=== PATIENT | male | born 1940 | race Caucasian/White ===

== ENCOUNTER 2017-07-25 11:30 | Inpatient (IN) | payer MEDICARE, OTHER ==
[~2017-07-25] VITALS: Ht 175.3 cm; Wt 88.5 kg
--- NOTE | ~2017-07-25 | H ---
[address] [address] HISTORY AND PHYSICAL Name: AMINATA LOMBARDO Room: [address]#: [id number] Admission: 07/25/17 Attend Phys: Bunny Carrion MD, Discharge: 07/27/17 Date of : 38 Report #: [id number] THIS REPORT FOR: //name// Please refer to the History and Physical performed in the physician's office. By: [id number] Records Staff MALU /ALBERTO
[~2017-07-25 11:30] MED LIST: ASPIR 8181 M1 PO; CALCIUM 600 +1 EAC1 PO; COPPER GLUCONATE PO; CRESTOR10 MG PO; DHEA50 MG PO; FISH OIL 1,001000 M2 PO; METOPROLOL TART25 MG PO; NEXIUM40 MG PO; OSTEO BI-FLEX1 EAC1 PO; OSTEO BI-FLEX1 EAC3 PO; PLAVIX 75 MG TA75 M1 PO; PLAVIX 75 MG TA75 MG PO; TESTOSTERONE TOP; VITAMIN B 12 PO; VITAMIN B 6 PO; VITAMIN D32000 UNIT PO; ZINC50 M1 PO; [UNRECOGNIZED DRUG - OTHER]
[2017-07-25 16:30] VITALS: BP 112/59
--- NOTE | 2017-07-25 17:30 | NUR ---
PT DIRECT ADMIT TO UNIT. A & O X4. ABLE TO COMMUNICATE NEEDS TO STAFF. SR ON TELE MONITOR. NO C/O PAIN, NAUSEA, SOA OR DISTRESS AT THIS TIME. VS WNL. IV FLUIDS INFUSING PER ORDER. NEEDED ITEMS AND CALL LIGHT WITHIN REACH. AGREEABLE TO CARE PLAN. CONFIRMED THAT PREDNISONE ORDER IS ON EMAR FOR ADMIN THIS EVENING WELL METHYLPREDNISOLONE FOR PRE-PROCEDURE MED 07/26/17.
[2017-07-25 20:00] VITALS: BP 133/63
[2017-07-26] VITALS (12 sets, daily range): BP systolic 107–147; BP diastolic 55–81
[2017-07-26 05:18] LABS: HEMOGLOBIN 14.7 gm/dL (14.0-18.0); MCH 31.7 pg (26.0-34.0); MCV 90.5 fL (80.0-100.0); MPV 9.4 fl. (7.2-11.1); NUCLEATED RBCS 0 /100WBC; PLATELET COUNT* 106 thou/uL (150-400); RBC 4.64 mil/uL (4.50-6.00); RDW-CV 13.8 % (10.5-14.5); WBC 9.4 thou/uL (4.0-11.0)
[2017-07-26 05:33] LABS: APTT 24.5 Seconds (25.0-31.3); INR 1.1; PROTIME 10.7 Seconds (9.20-11.50)
--- NOTE | 2017-07-26 05:39 | NUR ---
ASSUMED CARE OF PATIENT AT 1900 THE PATIENT REMAINS SR ON THE MONITOR DENIES CX PAIN OR SOA O2 SAT MAINTAINED ON RA CONTINUES TO BE UP WITH STANDBY ASSIST OF 1 TO THE BATHROOM THE ROUTINE REGIMEN CONTINUES TO BE EFFECTIVE FOR SX MANAGEMENT REPORTED PLAN FOR TIME OF SURGERY AROUND 0930 PATIENT STATES UNDERSTANDING 18 G IS PLACED IN THE LAC 20 G PRESENT IN LFA DURING CHART CHECK NOTED VALIUM ORDERS NEEDED ENTERED PLACED IN SYSTEM TRANSCRIBED SAFETY INTERVENTIONS CONTINUE BED LOWERED WHEELS LOCKED CALL LIGHT IN REACH SIDE RAILS UP REPORT TO BE GIVEN TO ONCOMING RN
[2017-07-26 06:09] LABS: BUN 21 mg/dL (7-18); GLUCOSE 141 mg/dL (70-99)
[2017-07-26 06:28] LABS: ALBUMIN 3.4 g/dL (3.4-5.0); ALKALINE PHOSPHATASE 59 U/L (46-116); ANION GAP 9 mmol/L (7-16); CALCIUM 8.5 mg/dL (8.5-10.1); CHLORIDE 107 mmol/L (98-107); CHOLESTEROL 118 mg/dL (<200); CO2 26 mmol/L (21-32); CREATININE 1.4 mg/dL (0.6-1.3); HDL CHOLESTEROL 45 mg/dL (>40); LDL CHOLESTEROL 63 mg/dL (<100); POTASSIUM 4.3 mmol/L (3.5-5.1); SGOT 19 U/L (15-37); SGPT 37 U/L (30-65); SODIUM 142 mmol/L (136-145); TC:HDL 2.6 Ratio (Not establshd); TOTAL BILIRUBIN 0.4 mg/dL (<0.1-1.0); TOTAL PROTEIN 6.1 g/dL (6.4-8.2); TRIGLYCERIDE 52 mg/dL (<150); VLDL 10 mg/dL (<40)
[2017-07-26 06:30] LABS: SERUM ASSESSMENT CLEAR
[2017-07-26 07:32] LABS: ABSOLUTE LYMPHOCYTES 0.8 thou/uL (0.8-5.3); ABSOLUTE NEUTROPHILS 8.6 thou/uL (1.6-8.1); ANISOCYTOSIS 1+; PLATELET ESTIMATE DECREASED; POIKILOCYTOSIS 1+
--- NOTE | 2017-07-26 09:13 | NUR ---
PT TO MANAGER AUDIO.
--- NOTE | 2017-07-26 12:13 | CARD ---
[address] [address] CARDIAC CATH REPORT Name: AMINATA LOMBARDO Room: [address] IN [facility]#: [id number] Admission: 07/25/17 Attend Phys: Bunny Carrion MD, Discharge: Date of : 39 Report #: [id number] THIS REPORT FOR: //name// APPROVED REPORT Study performed: 07/26/2017 08:57:18 Patient Details Patient Status: In-Patient Room #: 209 The patient is a 77 year-old male Event Personnel Bunny Carrion Medical Apparatus Model Maker, Tia Cruz RN RN, Josey Smith RN Monitor, Shaina Wooten RTR Scrub Procedures Performed Art Access - R femoral artery* , Left Heart Catheterization, FFR, RUSSELL Single LAD PTCA with Stenting; left heart catheterization with selective coronary arteriography; fractional flow reserve measured pertinent to a moderately severe mid LAD lesion, RUSSELL Addl BR DIAG 1 PTCA with Stenting Indication Unstable angina Risk Factors Family History, Hypercholesterolemia, Hypertension Previous Procedures/Diagnoses Previous PCI Admission/Lab Medications/Medications given during procedure Aspirin, Aspirin PO 162 mg, Plavix PO 600 mg, Angiomax IV 13.5 ml Procedure Narrative The patient was brought electively to the Cardiac Catheterization Laboratory and was prepped and draped in a sterile manner. The right femoral was infiltrated with 1% Lidocaine subcutaneous anesthesia. A [place] 6 FR sheath was inserted into the right femoral artery. Coronary angiography was performed using coronary diagnostic catheters. The right coronary system was accessed and visualized with a Diagnostic JR4 catheter. The left coronary system was accessed and visualized with a Diagnostic JL4 catheter. The left ventricle was accessed and visualized with a Pig 6fr [place] [address] CARDIAC CATH REPORT Name: AMINATA LOMBARDO Room: [address]#: [id number] Admission: 07/25/17 Attend Phys: Bunny Carrion MD, Discharge: Date of : 39 Report #: [id number] ventricular/Aortic Valve gradient assessed . Pre-demployment femoral angiogram was performed . Closure device was deployed with a 6 Fr Angioseal STS. The patient tolerated the procedure well and there were no complications associated with the procedure. There was no hematoma. Intraoperative Conscious Sedation Sedation start time: 939 Case end Time: 1046 Fentanyl 25 mcg Versed 2 mg Fluoro Time: 14 minutes Dose: DAP 311774 cGycm2 2175 mGy Contrast Type and Amount: Visipaque 295 ml Coronary Angiography The patient's coronary anatomy is right dominant. Diagnostic Cath Left Main 0% narrowing LAD 75 Percent mid LAD stenosis, predominantly within the previously deployed stent Diagonal 1 80% proximal narrowing of the prominent first diagonal branch Circumflex 30% proximal mid vessel narrowing with 30% narrowing of the proximal portion of the first marginal branch Right Coronary Dominant vessel with 30% proximal and distal narrowing Left Ventriculography Left Ventriculography was not performed. IVUS Anticoagulation was achieved with Angiomax. Fractional Flow Arnegard was performed on the mid left anterior descending artery segment vessel. IVUS Findings FFR was performed in the mid LAD with a minimum value of 0.79 after adenosine provocation, suggesting hemodynamic significance of the mid LAD lesion Hemodynamics The aortic pressure is 112/58 mmHg with a mean of 82 mmHg. The left ventricular pressure is 109/0 mmHg with a mean of mmHg. The left ventricular end diastolic pressure is 7 mmHg. [place] [address] CARDIAC CATH REPORT Name: AMINATA LOMBARDO Room: [address] IN [facility]#: [id number] Admission: 07/25/17 Attend Phys: Bunny Carrion MD, Discharge: Date of : 39 Report #: [id number] across the aortic valve upon pullback. PCI Technique Lesion Anticoagulation was achieved with Angiomax. Patient was preloaded with Angiomax IV 13.5 ml. Percutaneous coronary intervention was performed on the first diagnonal branch segment. The lesion stenosis prior to intervention was 80% with CALI 3 flow. A 6F XB LAD 3.5 Guide Catheter was used to engage the ostium. A ProwaterFlex 180CM Interventional Guidewire was used to cross the lesion. BALLOON DILATION A Balloon catheter Trek RX 2.75 X 8 was inserted and inflated up to 14.00atm for 21seconds. Additional Inflation: 10.00atm for 15seconds. STENT DEPLOYMENT A drug-eluting stent Xience Alpine RX 3.0 X 12 was inserted and inflated up to 11.00atm for 11seconds. POST STENT DEPLOYMENT BALLOON DILATION A Balloon catheter NC Trek RX 3.0 X 8 was inserted and inflated up to 15.00atm for 14seconds. Final angiography reveals 0 % stenosis with CALI 3 flow. PCI Technique Lesion The lesion stenosis prior to intervention was mid left anterior descending artery segment% with CALI flow. BALLOON DILATION A Balloon catheter FFR was performed in the mid LAD with a minimum value of 0.79 after adenosine provocation, suggesting hemodynamic significance of the mid LAD lesion was inserted and inflated up to miesha for seconds. PCI Technique Lesion 2 Percutaneous Coronary Intervention was performed on the mid left anterior descending artery segment. Percutaneous coronary intervention was performed on the mid left anterior descending artery segment. The lesion stenosis prior to intervention was 75% with CALI 3 flow. A 6F XB LAD 3.5 Guide Catheter was used to engage the left ostium. A Pressure Wire 175cm Interventional Guidewire was used to cross the lesion. Stent Deployment A drug-eluting stent Xience Alpine RX 2.25X12 [place] [address] CARDIAC CATH REPORT Name: AMINATA LOMBARDO Room: [address]#: [id number] Admission: 07/25/17 Attend Phys: Bunny Carrion MD, Discharge: Date of : 39 Report #: [id number] inflated up to 14atm for 15seconds. Post Stent Deployment Balloon Dilation A Balloon catheter NC Trek RX 2.5 X 8 was inserted and inflated up to 17atm for andseconds. Final angiography reveals 10 % stenosis with CALI 3 flow. Conclusion #1 significant coronary artery disease characterized by the following: A 75% mid LAD in-stent restenosis with 80% narrowing of the proximal portion of the prominent first diagonal branch, B 30% proximal and mid circumflex narrowing with 30% first marginal narrowing, this being a nondominant vessel C dominant right coronary artery with 30% proximal and distal narrowing with widely patent mid right coronary stents #2 normal left-sided hemodynamics study #3 fractional flow calculated pertinent to the mid lad lesion with a minimum value of 0.79, suggesting hemodynamic significance #4 successful percutaneous coronary intervention with deployment of drug-eluting stents at the sites of 80% proximal first diagonal stenosis and 75% mid lad in-stent restenosis with 0 and 10% residual narrowing following stent deployment and cali-3 flow to both distal circulations Recommendations Daily ASA with Plavix for at least one year Cardiac Risk Reduction Program Medications Administered Aspirin (any) [place] [address] CARDIAC CATH REPORT Name: AMINATA LOMBARDO Room: [address] IN [facility].#: [id number] Admission: 07/25/17 Attend Phys: Bunny Carrion MD, Discharge: Date of : 39 Report #: [id number] Diagnostic Cath Approved by: Bunny Carrion MD Date/Time: 07/26/17 at 1209 hrs. <ELECTRONICALLY SIGNED> By: Bunny Carrion MD, FACC 07/26/17 1212 1212 1212Jonash Carrion MD, FACC /INF
--- NOTE | 2017-07-26 12:37 | EKG ---
[place] [address] ELECTROCARDIOGRAM REPORT Name: AMINATA LOMBARDO Room: [address] IN .R.#: [id number] Admission: 07/25/17 Attend Phys: Bunny Carrion MD, Discharge: Date of : 39 Report #: [id number] THIS REPORT FOR: //name// [facility] Test Date: 2017-07-25 Test Time: 16:13:05 Pat Name: AMINATA LOMBARDO Department: Room: [address] Gender: M Fine Hairer: 26 : 1940 Requested By: Bunny Carrion Order Number: [id number] Reading MD: Jacob Garcia Measurements Intervals [place] Rate: 64 P: 17 NM: 232 QRS: -21 QRSD: 110 T: 0 QT: 397 QTc: 410 Interpretive Statements Sinus rhythm Prolonged NM interval Abnormal R-wave progression, early transition Left ventricular hypertrophy Borderline T abnormalities, inferior leads Compared to ECG 12/13/2016 07:53:03 T-wave abnormality now present Electronically Signed On 07-26-2017 12:37:32 CDT by Jacob Garcia [email or web address] <ELECTRONICALLY SIGNED> By: Jacob Garcia MD, FAC 07/26/17 1237 1613 1613 Jacob Garcia MD, FAC /EPI
--- NOTE | 2017-07-26 18:35 | NUR ---
S/P L HEART CATH WITH 2 STENTS, L GROIN SITE SOFT, NO HEMATOMA NOTED, NOT TENDER, DRESSING CDI. HRR, SR. PT DENIES PAIN OR OTHER DISCOMFORTS. FAMILY AT BEDSIDE THROUGH AFTERNOON AND EVENING. PT STRAIGHT CATHED AFTER C/O RETENTION FOLLOWING PROCEDURE, ABLE TO NOW URINATE FREELY. PT SITTING UP NOW ON BEDSIDE, UP AD FLYNN. PT ABLE TO MAKE NEEDS KNOWN, CALL LIGHT IN REACH.
[2017-07-27 04:00] VITALS: BP 126/70
[2017-07-27 04:30] LABS: HEMATOCRIT 43.1 % (42.0-52.0); HEMOGLOBIN 14.5 gm/dL (14.0-18.0); MCHC 33.7 g/dL (28.0-37.0); MCV 91.8 fL (80.0-100.0); MPV 8.9 fl. (7.2-11.1); RBC 4.7 mil/uL (4.50-6.00); RDW-CV 14.1 % (10.5-14.5)
[2017-07-27 04:56] LABS: ALKALINE PHOSPHATASE 58 U/L (46-116); ANION GAP 7 mmol/L (7-16); BUN 20 mg/dL (7-18); CALCIUM 8.4 mg/dL (8.5-10.1); CHLORIDE 110 mmol/L (98-107); CO2 27 mmol/L (21-32); CREATININE 1.2 mg/dL (0.6-1.3); GLUCOSE 129 mg/dL (70-99); POTASSIUM 4.4 mmol/L (3.5-5.1); SGOT 12 U/L (15-37); SGPT 27 U/L (30-65); SODIUM 144 mmol/L (136-145); TOTAL BILIRUBIN 0.3 mg/dL (<0.1-1.0); TOTAL PROTEIN 5.9 g/dL (6.4-8.2); TROPONIN-I LEVEL <0.06 ng/mL (<0.06)
--- NOTE | 2017-07-27 06:11 | NUR ---
NIGHT UNEVENTFUL PATIENT RESTING WITHOUT S/SX OF ACUTE DISTRESS CATH SITE R GROIN WITHOUT CONCERNS SAFETY INTERVENTIONS CONTINUE REPORT TO BE GIVEN TO ONCOMING RN
[2017-07-27 08:00] VITALS: BP 132/73
[2017-07-27] MEDS ORDERED: IMDUR 30 MG TAB30 M1 PO (08:52)
[2017-07-27 09:17] VITALS: BP 132/73
--- NOTE | 2017-07-27 10:18 | NUR ---
ASSUMED PT CARE AT 0700 PT IS ALERT AND ORIENTED X 4 PT IS UP AD FLYNN PT IS NOT A FALL RISK, PT RIGHT GROIN HAS BRUISING IS SOFT DRESSING CLEAN DRY INTACT, PT IS SR 1ST ON THE MONITOR, STOPPED THE FLUIDS PT IS ABLE TO DISCHARGE PER CARDIOLOGY, PT HAS BEEN VOIDING ON OWN WITHOUT ISSUE PT REFUSES IMDUR AND COLACE, GAVE PT PLAVIX THIS AM, PT IV REMOVED,PT DENIES PAIN OR SOA ON RA, WILL CONTINUE TO MONITOR
--- NOTE | 2017-07-27 12:46 | EKG ---
[place] [address] ELECTROCARDIOGRAM REPORT Name: AMINATA LOMBARDO Room: [address] IN M.R.#: [id number] Admission: 07/25/17 Attend Phys: Bunny Carrion MD, Discharge: 07/27/17 Date of : 39 Report #: [id number] THIS REPORT FOR: //name// [facility] Test Date: 2017-07-27 Test Time: 08:21:57 Pat Name: AMINATA LOMBARDO Department: Room: [address] Gender: M Weaving Teacher: NINA : 1940 Requested By: Bunny Carrion Order Number: [id number] Reading MD: Jacob Garcia Measurements Intervals [place] Rate: 74 P: 18 ND: 238 QRS: -17 QRSD: 108 T: -1 QT: 385 QTc: 428 Interpretive Statements Sinus rhythm Prolonged ND interval Abnormal R-wave progression, early transition Left ventricular hypertrophy Borderline T abnormalities, inferior leads Compared to ECG 07/25/2017 16:13:05 No significant changes Electronically Signed On 07-27-2017 12:46:49 CDT by Jacob Garcia [email or web address] <ELECTRONICALLY SIGNED> By: Jacob Garcia MD, [facility] 07/27/17 1246 0 0 Jacob Garcia MD, [facility] /EPI
--- NOTE | 2017-07-29 15:04 | D ---
[address] [address] DISCHARGE SUMMARY Name: AMINATA LOMBARDO Room: [address] IN .R.#: [id number] Admission: 07/25/17 Attend Phys: Bunny Carrion MD, Discharge: 07/27/17 Date of : 39 Report #: [id number] THIS REPORT FOR: //name// CC: Bunny Canales MD DATE OF SERVICE: 07/27/2017 FINAL DISCHARGE DIAGNOSES: 1. Unstable angina. 2. Coronary artery disease. 3. Status post percutaneous coronary intervention of the LAD and first diagonal. 4. Hypertension. 5. Hyperlipoproteinemia. 6. Bilateral carotid stenosis. PROCEDURES: 07/26/2017 -- left heart catheterization, selective coronary arteriotomy and percutaneous coronary intervention with deployment of drug-eluting stents in the first diagonal and mid LAD. 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 He has a history of coronary artery disease, status post multiple prior percutaneous coronary interventions, most recently in 12/2016 to the right coronary artery. Recently, he has noted recrudescence of chest pain with exertion, typical of his prior angina with concomitant dyspnea. This has been relieved by nitrates. The pattern has been one of increasing frequency and severity. The patient has underlying hypertension, hyperlipoproteinemia and peripheral vascular disease. In this context, I performed cardiac catheterization on 07/26/2017 which revealed 80% first diagonal stenosis with 75% mid LAD in-stent restenosis. I deployed one 2.0 x 12 mm Xience Alpine drug-eluting stent in the first diagonal and one 2.25 x 12 mm Xience Alpine in the mid LAD, post-dilated to 2.5 mm with 0% and 10% residual narrowings of the diagonal and LAD respectively. The patient did well post-procedurally and there was good hemostasis at the right femoral site of catheterization. He ambulated in the hallways without difficulty. LABORATORY DATA: On 07/27 revealed troponin I of less than 0.06, glucose of 129, LDL 62 milligrams percent. Sodium 144, potassium 4.4, BUN 20, creatinine 1.2. Hemoglobin 14.5; white blood cell count 17,000 and 121,000 platelets. The patient ambulated in the hallways without [place] [address] DISCHARGE SUMMARY Name: AMINATA LOMBARDO Room: [address]#: [id number] Admission: 07/25/17 Attend Phys: Bunny Carrion MD, Discharge: 07/27/17 Date of : 39 Report #: [id number] site dressing was changed. He was discharged home on the following medications: Aspirin 162 mg daily, calcium carbonate and vitamin D one tablet daily, cholecalciferol 2000 units daily, clopidogrel 75 mg daily with a 600 mg luisana-procedural dose, copper gluconate 100 mg daily, fish oil 1000 mg t.i.d., Nexium 40 mg daily, glucosamine 1 tablet b.i.d., Imdur 30 mg daily, metoprolol tartrate 25 mg b.i.d., prasterone 50 mg daily, rosuvastatin or Crestor 5 mg daily, zinc 50 mg daily, herbal supplement daily, testosterone 2 applications daily, vitamin B12 25 mg daily, vitamin B6 2500 mg daily. The patient is to be seen by me in followup on 08/19/2017 at our [facility] office and his continuing care will be with Dr. Elijah Canales in [place]. Thus, the patient is discharged to home on the aforementioned medications with followup as iterated above. He is in stable condition. <ELECTRONICALLY SIGNED> By: Bunny Carrion MD, FACC 07/29/17 1504 0637 0741Bunny Carrion MD, FACC /nt
== END 2017-07-27 11:26 | disposition home or self-care (01) | DRG 247 ==
LOC: M.2W 11:30
PROVIDERS: ADMIT Internal Medicine
PROC: B2111ZZ Fluoroscopy of Multiple Coronary Arteries using Low Osmolar Contrast (ICD-10-PCS; principal; 2017-07-26)
PROC: B2151ZZ Fluoroscopy of Left Heart using Low Osmolar Contrast (ICD-10-PCS; principal; 2017-07-26)
PROC: 027135Z Dilation of Coronary Artery, Two Arteries with Two Drug-eluting Intraluminal Devices, Percutaneous Approach (ICD-10-PCS; principal; 2017-07-26)
PROC: 4A023N7 Measurement of Cardiac Sampling and Pressure, Left Heart, Percutaneous Approach (ICD-10-PCS; principal; 2017-07-26)
DX: T82.855A Stenosis of coronary artery stent, initial encounter (principal); I25.110 Atherosclerotic heart disease of native coronary artery with unstable angina pectoris; I10 Essential (primary) hypertension; I65.23 Occlusion and stenosis of bilateral carotid arteries; I73.9 Peripheral vascular disease, unspecified; Y83.8 Other surgical procedures as the cause of abnormal reaction of the patient, or of later complication, without mention of misadventure at the time of the procedure; E78.00 Pure hypercholesterolemia, unspecified; I25.2 Old myocardial infarction; Y92.89 Other specified places as the place of occurrence of the external cause; Z79.02 Long term (current) use of antithrombotics/antiplatelets; Z79.82 Long term (current) use of aspirin; Z79.899 Other long term (current) drug therapy; Z91.041 Radiographic dye allergy status

== ENCOUNTER 2018-06-23 17:28 | Inpatient (IN) | payer MEDICARE, OTHER ==
[~2018-06-23] VITALS: Ht 175.3 cm; Wt 92.5 kg
--- NOTE | ~2018-06-23 | EKG ---
[place] [address] ELECTROCARDIOGRAM REPORT Name: AMINATA LOMBARDO Room: [address] DIS IN M..#: [id number] Admission: 06/23/18 Attend Phys: Sarah Monteiro MD Discharge: 06/25/18 Date of : 39 Report #: [id number] THIS REPORT FOR: //name// [facility] Test Date: 2018-06-24 Test Time: 13:26:03 Pat Name: AMINATA LOMBARDO Department: Room: [address] Gender: M Director Surface Transportation: : 1940 Requested By: Bunny Carrion Order Number: [id number] Reading MD: Measurements Intervals [place] Rate: 73 P: 31 [place]: 209 QRS: -16 QRSD: 110 T: 2 QT: 399 QTc: 440 Interpretive Statements Sinus rhythm Borderline left axis deviation Abnormal R-wave progression, early transition Compared to ECG 07/27/2017 08:21:57 First degree AV block no longer present Left ventricular hypertrophy no longer present T-wave abnormality no longer present [email or web address] By: 1326 1326 Epiphany Epiphany, MS /EPI
--- NOTE | ~2018-06-23 | EKG ---
[place] [address] ELECTROCARDIOGRAM REPORT Name: AMINATA LOMBARDO Room: [address] DIS IN M..#: [id number] Admission: 06/23/18 Attend Phys: Sarah Monteiro MD Discharge: 06/25/18 Date of : 38 Report #: [id number] THIS REPORT FOR: //name// [facility] Test Date: 2018-06-25 Test Time: 07:02:56 Pat Name: AMINATA LOMBARDO Department: Room: [address] Gender: M Postal Sorting Officer: MYRTLE : 1940 Requested By: Bunny Carrion Order Number: [id number] Reading MD: Measurements Intervals [place] Rate: 64 P: 57 VT: 240 QRS: -17 QRSD: 114 T: 2 QT: 402 QTc: 415 Interpretive Statements Sinus rhythm Prolonged VT interval Abnormal R-wave progression, early transition Probable left ventricular hypertrophy Baseline wander in lead(s) V2 Compared to ECG 06/24/2018 13:26:03 First degree AV block now present [email or web address] By: 1 1 Epiphany Epiphany, MD /EPI
[~2018-06-23 17:28] MED LIST changes: -CALCIUM 600 +1 EAC1 PO; +IMDUR 30 MG TAB30 M1 PO
[2018-06-23 17:31] VITALS: BP 122/74
[2018-06-23] MEDS ORDERED: CALCIUM PO (17:44)
[2018-06-23 18:09] LABS: ABSOLUTE EOSINOPHILS 0.2 thou/uL (0.0-0.7); ABSOLUTE MONOCYTES 0.7 thou/uL (0.0-1.2); BASOPHILS 0.3 %; EOSINOPHILS 2.4 %; HEMATOCRIT 43.6 % (42.0-52.0); HEMOGLOBIN 15.1 gm/dL (14.0-18.0); LYMPHOCYTES 25.2 %; MCH 32.2 pg (26.0-34.0); MCHC 34.7 g/dL (28.0-37.0); MCV 92.9 fL (80.0-100.0); MONOCYTES 8.6 %; NUCLEATED RBCS 0 /100WBC; PLATELET COUNT* 124 thou/uL (150-400); POLYS 63.5 %; RBC 4.69 mil/uL (4.50-6.00); RDW-CV 13.9 % (10.5-14.5); WBC 7.8 thou/uL (4.0-11.0)
[2018-06-23 18:22] LABS: ANION GAP 10 mmol/L (7-16); BUN 19 mg/dL (7-18); CALCIUM 9.1 mg/dL (8.5-10.1); CHLORIDE 106 mmol/L (98-107); CO2 26 mmol/L (21-32); CREATININE 1.4 mg/dL (0.6-1.3); GLUCOSE 93 mg/dL (70-99); POTASSIUM 4.2 mmol/L (3.5-5.1); PROTIME 10.4 Seconds (9.20-11.50); SODIUM 142 mmol/L (136-145)
[2018-06-23 18:32] LABS: ALBUMIN 3.7 g/dL (3.4-5.0); ALKALINE PHOSPHATASE 71 U/L (46-116); LIPASE 90 U/L (73-393); NT-PRO BRAIN NAT PEPTIDE 49 pg/mL (<300); SGOT 22 U/L (15-37); SGPT 44 U/L (30-65); TOTAL BILIRUBIN 0.4 mg/dL (<0.1-1.0); TOTAL PROTEIN 6.9 g/dL (6.4-8.2); TROPONIN-I LEVEL <0.06 ng/mL (<0.06)
[2018-06-23 19:57] VITALS: BP 133/77
[2018-06-23 20:00] VITALS: BP 143/67
[2018-06-23] MEDS ORDERED: FLOMAX0.4 MG PO (22:05)
[2018-06-24] VITALS (12 sets, daily range): BP systolic 100–148; BP diastolic 60–80
[2018-06-24 01:26] LABS: HEMATOCRIT 41.5 % (42.0-52.0); HEMOGLOBIN 14.4 gm/dL (14.0-18.0); MCHC 34.7 g/dL (28.0-37.0); MCV 92.3 fL (80.0-100.0); MPV 9.1 fl. (7.2-11.1); RBC 4.5 mil/uL (4.50-6.00); RDW-CV 14.1 % (10.5-14.5)
[2018-06-24 01:41] LABS: ANION GAP 7 mmol/L (7-16); BUN 19 mg/dL (7-18); CHLORIDE 107 mmol/L (98-107); CHOLESTEROL 102 mg/dL (<200); CO2 28 mmol/L (21-32); CREATININE 1.5 mg/dL (0.6-1.3); GLUCOSE 141 mg/dL (70-99); HDL CHOLESTEROL 41 mg/dL (>40); LDL CHOLESTEROL 38 mg/dL (<100); SERUM ASSESSMENT Clear; SODIUM 142 mmol/L (136-145); TC:HDL 2.5 Ratio (Not establshd); TRIGLYCERIDE 115 mg/dL (<150); TROPONIN-I LEVEL <0.06 ng/mL (<0.06); VLDL 23 mg/dL (<40)
--- NOTE | 2018-06-24 15:57 | 2DMMODE ---
[place] [address] 2 D/M-MODE ECHOCARDIOGRAM Name: AMINATA LOMBARDO Room: [address] IN [facility]#: [id number] Admission: 06/23/18 Attend Phys: Sarah Monteiro, Discharge: Date of : 38 Date of Service: 06/24/18 1557 Report #: [id number] THIS REPORT FOR: //name// APPROVED REPORT Study performed: 06/24/2018 15:21:26 EXAM: Comprehensive 2D, Doppler, and color-flow Echocardiogram Patient Location: In-Patient Room #: [facility] Status: routine BSA: 2.08 HR: 82 bpm BP: 115/69 mmHg Rhythm: NSR Other Information Study Quality: Good Indications angina 2D Dimensions IVSd: 12.54 (7-11mm) LVOT Diam: 20.10 (18-24mm) LVDd: 53.08 mm PWd: 10.90 (7-11mm) Ascending Ao: 28.56 (22-36mm) LVDs: 30.44 (25-40mm) Aortic Root: 34.51 mm Volumes Left Atrial Volume (Systole) LA ESV Index: 23.80 mL/m2 Aortic Valve AoV Peak Wisam.: 1.45 m/s AO Peak Gr.: 8.46 mmHg LVOT Max P.42 mmHg AO Mean Gr.: 5.02 mmHg LVOT Mean P.07 mmHg LVOT Max V: 1.05 m/s AO V2 VTI: 26.08 cm LVOT Mean V: 0.65 m/s HENRIETTA (VTI): 2.41 cm2 LVOT V1 VTI: 19.81 cm Mitral Valve E/A Ratio: 0.71 MV Decel. Time: 142.96 ms MV E Max Wisam.: 0.71 m/[place] [address] 2 D/M-MODE ECHOCARDIOGRAM Name: AMINATA LOMBARDO Room: [address] IN [facility]#: [id number] Admission: 06/23/18 Attend Phys: Sarah Monteiro, Discharge: Date of : 38 Date of Service: 06/24/18 1557 Report #: [id number] MV PHT: 41.46 ms MVA (PHT): 5.31 cm2 TDI E/Lateral E': 6.45 E/Medial E': 7.10 Medial E' Wisam.: 0.10 m/s Lateral E' Wisam.: 0.11 m/s Pulmonary Valve PV Peak Wisam.: 0.63 m/s PV Peak Gr.: 1.58 mmHg Left Ventricle The left ventricle is normal size. There is normal LV segmental wall motion. There is normal left ventricular wall thickness. Left ventricular systolic function is normal. The left ventricular ejection fraction is within the normal range. LVEF is 65%. Grade I - abnormal relaxation pattern. Right Ventricle The right ventricle is normal size. The right ventricular systolic function is normal. Atria The left atrium size is normal. The right atrium size is normal. Aortic Valve Mild aortic valve sclerosis. No aortic regurgitation is present. There is no aortic valvular stenosis. Mitral Valve The mitral valve is normal in structure. Mild mitral regurgitation. No evidence of mitral valve stenosis. Tricuspid Valve The tricuspid valve is normal in structure. There is no tricuspid valve regurgitation noted. Pulmonic Valve The pulmonary valve is normal in structure. There is no pulmonic valvular regurgitation. Great Vessels The aortic root is normal in size. IVC is normal in size and collapses >50% [place] [address] 2 D/M-MODE ECHOCARDIOGRAM Name: AMINATA LOMBARDO Room: [address]#: [id number] Admission: 06/23/18 Attend Phys: Sarah Monteiro, Discharge: Date of : 38 Date of Service: 06/24/18 1557 Report #: [id number] Pericardium There is no pericardial effusion. <Conclusion> The left ventricle is normal size. There is normal left ventricular wall thickness. Left ventricular systolic function is normal. The left ventricular ejection fraction is within the normal range. LVEF is 65%. Grade I - abnormal relaxation pattern. The right ventricle is normal size. The left atrium size is normal. Mild aortic valve sclerosis. No aortic regurgitation is present. There is no aortic valvular stenosis. The mitral valve is normal in structure. Mild mitral regurgitation. The tricuspid valve is normal in structure. IVC is normal in size and collapses >50% with inspiration. There is no pericardial effusion. There is normal LV segmental wall motion. <ELECTRONICALLY SIGNED> By: Bunny Carrion MD, FACC 06/24/18 1557 1557 1557 Bunny Carrion MD, FACC /INF
--- NOTE | 2018-06-24 16:05 | EKG ---
[place] [address] ELECTROCARDIOGRAM REPORT Name: AMINTAA LOMBARDO Room: [address] ADM IN [facility].#: [id number] Admission: 06/23/18 Attend Phys: Sarah Monteiro MD Discharge: Date of : 38 Report #: [id number] THIS REPORT FOR: //name// [facility] ED Test Date: 2018-06-23 Test Time: 17:35:42 Pat Name: AMINATA LOMBARDO Department: Room: [facility] Gender: M Watermelon Inspector: : 1940 Requested By: Stefania Hutton Order Number: [id number] MD: Bunny Carrion Measurements Intervals [place] Rate: 67 P: 36 MA: 215 QRS: -3 QRSD: 111 T: 22 QT: 395 QTc: 417 Interpretive Statements Sinus rhythm Borderline prolonged MA interval Abnormal R-wave progression, early transition Left ventricular hypertrophy Compared to ECG 07/27/2017 08:21:57 T-wave abnormality no longer present Electronically Signed On 06-24-2018 16:05:04 COMPLIANCE NURSE by Bunny Carrion [email or web address] <ELECTRONICALLY SIGNED> By: Bunny Carrion MD, [facility] 06/24/18 1605 1735 1735 Bunny Carrion MD, [facility] /EPI
[2018-06-25] VITALS: BP 124/67
[2018-06-25 04:00] VITALS: BP 113/98
[2018-06-25 05:26] LABS: HEMATOCRIT 41.5 % (42.0-52.0); HEMOGLOBIN 14.1 gm/dL (14.0-18.0); MCH 31.8 pg (26.0-34.0); MCV 93.6 fL (80.0-100.0); MPV 9.6 fl. (7.2-11.1); RBC 4.44 mil/uL (4.50-6.00); RDW-CV 13.7 % (10.5-14.5); WBC 16.9 thou/uL (4.0-11.0)
[2018-06-25 05:52] LABS: CALCIUM 8.7 mg/dL (8.5-10.1); CREATININE 1.4 mg/dL (0.6-1.3); POTASSIUM 4.1 mmol/L (3.5-5.1); TOTAL BILIRUBIN 0.2 mg/dL (<0.1-1.0); TOTAL PROTEIN 5.8 g/dL (6.4-8.2); TROPONIN-I LEVEL 0.07 ng/mL (<0.06)
[2018-06-25 07:30] VITALS: BP 115/60
[2018-06-25 09:45] VITALS: BP 115/69
[2018-06-25 10:39] VITALS: BP 115/69
[2018-06-25] MEDS ORDERED: NITROGLYCERIN0.4 MG SUBLING (11:32)
[2018-06-25] MEDS ORDERED: CALCIUM 600 +1 EAC1 PO (11:40)
--- NOTE | 2018-06-26 14:41 | CON ---
[facility] [address] [place] [address] CONSULTATION Name: AMINATA LOMBARDO Room: [address] IN ..#: [id number] Admission: 06/23/18 Attend Phys: Sarah Monteiro MD Discharge: 06/25/18 Date of : 38 Report #: [id number] THIS REPORT FOR: //name// CC: Sarah Canales DATE OF SERVICE: 06/24/2018 CARDIOLOGY CONSULTATION HISTORY OF PRESENT ILLNESS: The patient is a pleasant 78-year-old male with complex coronary artery disease, status post multiple prior percutaneous coronary interventions, most recently in 07/2017 to the LAD and prominent diagonal. 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 He has had no protracted bouts of pain and they are typically nitrate responsive, but there has been an increase in frequency and severity. Yesterday, he had his worst episode while driving the tractor and sought assistance in the [facility]. Since admission, he has had no significant discomfort. The patient is on a complex cardiac regimen including aspirin 81 mg daily, Plavix 75 mg daily, metoprolol 25 mg b.i.d. and Crestor 5 mg daily. ADDITIONAL MEDICATIONS: Include Nexium, fish oil, DHEA, pyridoxine, vitamin D3 and zinc. PAST MEDICAL HISTORY: Remarkable for carotid stenosis with a 100% right internal carotid narrowing and 50% of left, history of prior myocardial infarction, hyperlipidemia and hypertension. SOCIAL HISTORY: The patient is , is a nonsmoker. REVIEW OF SYSTEMS: Remarkable for the following positives. GENERAL: He notes some easy fatigability. MUSCULOSKELETAL: There are chronic arthritic complaints. CARDIAC: He has described the aforementioned chest discomfort with a crescendo pattern. FAMILY HISTORY: There is no family history defined a significant prior premature coronary disease. PHYSICAL EXAMINATION: GENERAL: Reveals an elderly male, [place] [address] CONSULTATION Name: AMINATA LOMBARDO Room: [address]#: [id number] Admission: 06/23/18 Attend Phys: Sarah Monteiro MD Discharge: 06/25/18 Date of : 39 Report #: [id number] VITAL SIGNS: Blood pressure 140/70, pulse rate is 68 and respirations are 18 per minute. NECK: Jugular venous pressure is normal. Carotids are absent on the right. CHEST: Clear. CARDIAC: Reveals normal first and second heart sounds with a soft systolic ejection type murmur. ABDOMEN: Mildly obese. EXTREMITIES: Without edema with intact femoral, pedal and radial pulses. IMPRESSION: 1. Coronary artery disease with unstable angina. 2. Status post multiple prior percutaneous coronary interventions. 3. 100% right carotid occlusion with 50% on the left. 4. Hypertension. 5. Hyperlipidemia. RECOMMENDATIONS: Given the aforementioned clinical scenario, I would recommend proceeding with cardiac catheterization this a.m. in the context of a clinically unstable angina. The procedure and risks have been discussed with the patient. A critical care time is 35 minutes from [id number]. <ELECTRONICALLY SIGNED> By: Bunny Carrion MD, [facility] 06/26/18 1441 0929 1644Bunny Carrion MD, FACC /nt
--- NOTE | 2018-06-27 11:41 | CARD ---
[address] [address] CARDIAC CATH REPORT Name: AMINATA LOMBARDO Room: [address] IN [facility]#: [id number] Admission: 06/23/18 Attend Phys: Sarah Monteiro MD Discharge: 06/25/18 Date of : 39 Report #: [id number] THIS REPORT FOR: //name// APPROVED REPORT Study performed: 06/24/2018 09:12:26 Patient Details Patient Status: In-Patient Room #: 214 The patient is a 78 year-old male Event Personnel Bnuny Carrion Forge Hand, Josey Smith RN Maintenance Shop Clerk, Yen Adamson Monitor, Hemant Finn (R) Scrub Procedures Performed Art Access - R femoral artery* Left Heart Cath w/or w/o Coronaries [id number] [facility] R[address]SELL Place w/wo Plasty Single LAD [id number] Indication Unstable angina Risk Factors Peripheral Vascular Disease, Hypercholesterolemia, Hypertension Admission/Lab Medications/Medications given during procedure Aspirin, Platelet Aff. Inhib., Angiomax bolus and infusion Procedure Narrative The patient was brought electively to the Cardiac Catheterization Laboratory and was prepped and draped in a sterile manner. The right femoral was infiltrated with 2% Lidocaine subcutaneous anesthesia. A [place] 6 FR sheath was inserted into the right femoral artery. Coronary angiography was performed using coronary diagnostic catheters. The right coronary system was accessed and visualized with a JR4 6fr catheter. The left coronary system was accessed and visualized with a JL4 6fr catheter. The left ventricle was accessed and visualized with a 6 Fr Straight Pigtail catheter. Left ventricular/Aortic Valve gradient assessed via catheter pullback. Pre-demployment femoral angiogram was performed . Closure device was deployed with a 6 Fr Angioseal STS 6Fr. The patient tolerated the procedure well and there were no complications associated with the procedure. [place] [address] CARDIAC CATH REPORT Name: AMINATA LOMBARDO Room: [address]#: [id number] Admission: 06/23/18 Attend Phys: Sarah Monteiro MD Discharge: 06/25/18 Date of : 39 Report #: [id number] Intraoperative Conscious Sedation Sedation start time: 10:05 Case end Time: 10:43 Fentanyl 50 mcg Versed 2 mg Fluoro Time: 8.3 minutes Dose: DAP 23594 cGycm2 1419.41 mGy Contrast Type and Amount: Visipaque 155 ml Diagnostic Cath Left Main 0% narrowing LAD 80% focal mid LAD in-stent restenosis Circumflex 30% mid vessel narrowing Right Coronary 30% proximal and distal narrowing of with 40% postero-lateral branch narrowing Left Ventriculography Left Ventriculography was not performed. Hemodynamics The aortic pressure is 140/55 mmHg with a mean of mmHg. The left ventricular pressure is 118/7 mmHg with a mean of mmHg. The left ventricular end diastolic pressure is 15 mmHg. There was no gradient across the aortic valve upon pullback. PCI Technique Lesion Anticoagulation was achieved with Angiomax. Patient was preloaded with Angiomax IV 14 mg per kg. Percutaneous coronary intervention was performed on the mid left anterior descending artery segment. The lesion stenosis prior to intervention was 80% with SUSIE 3 flow. A 6F XB LAD 3.5 Guide Catheter was used to engage the LCA ostium. A IG: BMW 190cm Interventional Guidewire was used to cross the lesion. BALLOON DILATION A Balloon catheter NC Trek RX 2.25 X 8 was inserted and inflated up to 18.00atm for 10seconds. Additional Inflation: 20.00atm for 15seconds. STENT DEPLOYMENT A drug-eluting stent Xience Katarzyna 2.25X8mm was inserted and inflated up to 16.00atm for 13seconds. Additional Inflation: 18.00atm for 13seconds. Final angiography reveals 0 % stenosis with SUSIE [address] [place] [address] CARDIAC CATH REPORT Name: AMINATA LOMBARDO Room: [address] IN M.R.#: [id number] Admission: 06/23/18 Attend Phys: Sarah Monteiro MD Discharge: 06/25/18 Date of : 39 Report #: [id number] flow. Conclusion #1 significant coronary artery disease characterized by the following: A 80% focal mid LAD in-stent restenosis B 30% mid circumflex narrowing C dominant right coronary artery with 30% proximal and distal narrowing and 40% posterolateral branch narrowing #2 normal left-sided hemodynamics study #3 successful percutaneous coronary intervention with deployment of a drug-eluting stent at site of 80% focal mid LAD in-stent restenosis with 0% residual narrowing and SUSIE-3 flow to the distal vessel Recommendations Cardiac Risk Reduction Program Aggressive Medical Therapy Medications Administered Aspirin (any) Clopidogrel Diagnostic Cath Approved by: Bunny Carrion MD Date/Time: 06/27/2018 11:39:16 <ELECTRONICALLY SIGNED> By: Bunny Carrion MD, FACC 06/27/18 1140 1140 1140Bunny Carrion MD, FACC /INF
== END 2018-06-25 12:07 | disposition home or self-care (01) | DRG 303 ==
LOC: M.ERS 17:28 → M.2W 18:05 → M.TBA-ER 18:05 → M.2W 20:00
PROVIDERS: Internal Medicine; Personal Emergency Response Attendant; ADMIT Internal Medicine
DX: I25.110 Atherosclerotic heart disease of native coronary artery with unstable angina pectoris (principal); N18.9 Chronic kidney disease, unspecified; I12.9 Hypertensive chronic kidney disease with stage 1 through stage 4 chronic kidney disease, or unspecified chronic kidney disease; Z96.641 Presence of right artificial hip joint; E78.5 Hyperlipidemia, unspecified; Z98.42 Cataract extraction status, left eye; Z98.41 Cataract extraction status, right eye; Z91.041 Radiographic dye allergy status; Z95.5 Presence of coronary angioplasty implant and graft; I25.2 Old myocardial infarction; Z82.49 Family history of ischemic heart disease and other diseases of the circulatory system; Z79.899 Other long term (current) drug therapy

== ENCOUNTER 2019-09-13 10:26 | Observation (INO) | payer MEDICARE, OTHER ==
[2019-09-13] VITALS (11 sets, daily range): BP systolic 112–130; BP diastolic 59–78
[~2019-09-13] VITALS: Ht 175.3 cm; Wt 86.2 kg
[~2019-09-13 10:26] MED LIST changes: +CALCIUM 600 +1 EAC1 PO; +CALCIUM PO; +FLOMAX0.4 MG PO; +NITROGLYCERIN0.4 MG SUBLING; -VITAMIN D32000 UNIT PO; +Vitamin D3 PO
[2019-09-13 11:11] LABS: HEMATOCRIT 43.3 % (42.0-52.0); HEMOGLOBIN 15.3 gm/dL (14.0-18.0); MCH 32.6 pg (26.0-34.0); MCHC 35.4 g/dL (28.0-37.0); MCV 92.2 fL (80.0-100.0); MPV 8.6 fl. (7.2-11.1); RBC 4.7 mil/uL (4.50-6.00); RDW-CV 14.3 % (10.5-14.5); WBC 14.3 thou/uL (4.0-11.0)
[2019-09-13 11:20] LABS: APTT 23.8 Seconds (25.0-31.3); CALCIUM 8.7 mg/dL (8.5-10.1); CREATININE 1.5 mg/dL (0.6-1.3); PROTIME 10.7 Seconds (9.20-11.50)
[2019-09-13 11:25] LABS: ALBUMIN 3.8 g/dL (3.4-5.0); TOTAL BILIRUBIN 0.5 mg/dL (<0.1-1.0); TOTAL PROTEIN 7.2 g/dL (6.4-8.2)
[2019-09-13 11:40] LABS: CHOLESTEROL 137 mg/dL (<200); HDL CHOLESTEROL 58 mg/dL (>40); LDL CHOLESTEROL 67 mg/dL (<100); TC:HDL 2.4 Ratio (Not establshd); TRIGLYCERIDE 62 mg/dL (<150); VLDL 12 mg/dL (<40)
[2019-09-13 11:42] LABS: SERUM ASSESSMENT Clear
--- NOTE | 2019-09-13 13:55 | NUR ---
POST OP HEART CATH TO RM 221 VIA CART REPORT GIVEN AT BEDSIDE R GROIN SITE C/D/I IVF NS AT 125/HR C/O OF ACHE AT SITE 07/12 REF PAIN MEDICATION ORIENTED TO RM AND CALL LIGHT
--- NOTE | 2019-09-13 16:38 | EKG ---
[place] [address] ELECTROCARDIOGRAM REPORT Name: GRUPOAMINATA Welch Room: [address]#: [id number] Admission: 09/13/19 Attend Phys: Cheryl Baird Discharge: Date of : 38 Date of Service: 09/13/19 1353 Report #: [id number] THIS REPORT FOR: //name// [facility] Test Date: 2019-09-13 Test Time: 13:53:40 Pat Name: AMINATA LOMBARDO Department: Room: [facility] Gender: M Claim Review Medical Director: DENISA : 1940 Requested By: Bunny Carrion Order Number: [id number] Marianela MD: Jose Juan Rolle Measurements Intervals [place] Rate: 72 P: -49 SC: 253 QRS: -4 QRSD: 112 T: 47 QT: 400 QTc: 438 Interpretive Statements Sinus or ectopic atrial rhythm Prolonged SC interval Borderline intraventricular conduction delay Compared to ECG 06/25/2018 07:02:56 Ectopic atrial rhythm now present Sinus rhythm no longer present Electronically Signed On 09-13-2019 16:37:08 CDT by Jose Juan Rolle [email or web address] <ELECTRONICALLY SIGNED> By: Jose Juan Rolle MD, FAC 09/13/19 1637 1353 1353 Jose Juan Rolle MD, FAC /EPI
--- NOTE | 2019-09-13 16:38 | EKG ---
[place] [address] ELECTROCARDIOGRAM REPORT Name: GRUPOAMINATA Welch Room: [address]#: [id number] Admission: 09/13/19 Attend Phys: Cheryl Baird Discharge: Date of : 39 Date of Service: 09/13/19 1107 Report #: [id number] THIS REPORT FOR: //name// [facility] Test Date: 2019-09-13 Test Time: 11:07:54 Pat Name: AMINATA LOMBARDO Department: Room: [facility] Gender: M Glass Lined Tank Repairer: DENISA : 1940 Requested By: Bunny Carrion Order Number: [id number] Reading MD: Jose Juan Rolle Measurements Intervals [place] Rate: 85 P: 27 CA: 237 QRS: -17 QRSD: 109 T: 17 QT: 373 QTc: 444 Interpretive Statements Sinus rhythm Prolonged CA interval Borderline left axis deviation Abnormal R-wave progression, early transition Compared to ECG 06/25/2018 07:02:56 No significant changes Electronically Signed On 09-13-2019 16:36:26 CDT by Jose Juan Rolle [email or web address] <ELECTRONICALLY SIGNED> By: Jose Juan Rolle MD, FAC 09/13/19 1636 1107 1107 Jose Juan Rolle MD, [facility] /EPI
[2019-09-14] VITALS: BP 112/58
[2019-09-14 04:13] LABS: MCH 32.1 pg (26.0-34.0); MCV 91.5 fL (80.0-100.0); MPV 8.2 fl. (7.2-11.1); RBC 4.15 mil/uL (4.50-6.00); RDW-CV 14.1 % (10.5-14.5); WBC 13.2 thou/uL (4.0-11.0)
[2019-09-14 04:30] VITALS: BP 108/53
[2019-09-14 04:42] LABS: HEMOGLOBIN 13.3 gm/dL (14.0-18.0)
[2019-09-14 04:55] LABS: ALBUMIN 2.9 g/dL (3.4-5.0); CREATININE 1.4 mg/dL (0.6-1.3); POTASSIUM 4.1 mmol/L (3.5-5.1); TOTAL BILIRUBIN 0.3 mg/dL (<0.1-1.0); TOTAL PROTEIN 5.8 g/dL (6.4-8.2)
[2019-09-14 07:30] VITALS: BP 113/53
[2019-09-14 07:57] VITALS: BP 113/53
--- NOTE | 2019-09-14 11:30 | NUR ---
ASSUMED CARE OF PATIENT AT APPROX 0730. ALERT AND ORIENTED X4. ASSESSMENT COMPLETED AND CHARTED. VSS ON ROOM AIR. NO COMPLAINTS OF PAIN. CATH SITE TO RIGHT GROIN SITE HAS SOME BRUISING, DRESSING IS CLEAN, DRY AND INTACT WITH NO DRAINAGE NOTED. PATIENT UP AD FLYNN IN THE ROOM. PATIENT DISCHARGED AT 1127 WITH ALL PERSONAL BELONGINGS AND DISCHARGE INSTRUCTIONS.
--- NOTE | 2019-09-14 13:18 | CARD ---
[address] [address] CARDIAC CATH REPORT Name: GRUPOAMINATA Rebekah Room: [address] M.R.#: [id number] Admission: 09/13/19 Attend Phys: Bunny Carrion MD, Discharge: 09/14/19 Date of : 39 Report #: [id number] THIS REPORT FOR: //name// cc: Elijah Canales MD, Shaun B. MD ~ ADDENDUM APPROVED REPORT Study performed: 09/13/2019 11:40:19 Patient Details Patient Status: Out-Patient Room #: The patient is a 79 year-old male Event Personnel Bunny Carrion Pediatric Licensed Practical Nurse, Shaunna Wheatley RN, Jonathan Wick Scrub, Jennifer Moctezuma RTR Monitor, Bismark Giang RN creative coordinator Performed Art Access - R femoral artery, Left Heart Cath w/or w/o Coronaries , RUSSELL Place w/wo Plasty Single LAD, PTCA Addl Branch DIAG 1, Hemostasis w/ Angioseal Indication Unstable angina Risk Factors Hypercholesterolemia, Hypertension Previous Procedures/Diagnoses Previous PCI Admission/Lab Medications/Medications given during procedure Angiomax IV bolus 13 ml, Angiomax Drip IV 30.22 ml per hr, Plavix PO 300 mg Procedure Narrative The patient was brought electively to the Cardiac Catheterization Laboratory and was prepped and draped in a sterile manner. The right femoral was infiltrated with 2% Lidocaine subcutaneous anesthesia. A 6F Riddle sheath was inserted into the right femoral artery. Coronary angiography was performed using coronary diagnostic catheters. The right coronary system was accessed and visualized with a 6 Fr JR 4 catheter. The left coronary system was accessed and visualized with a 6 Fr JL 4 catheter. The left [place] [address] CARDIAC CATH REPORT Name: AMINATA LOMBARDO [address] [id number] Admission: 09/13/19 Attend Phys: Bunny Carrion MD, Discharge: 09/14/19 Date of : 39 Report #: [id number] and visualized with a 6 Fr Pigtail catheter. Left ventricular/Aortic Valve gradient assessed via catheter pullback. Pre-demployment femoral angiogram was performed . Closure device was deployed with a 6 Fr Angioseal STS. The patient tolerated the procedure well and there were no complications associated with the procedure. There was no hematoma. Intraoperative Conscious Sedation Sedation start time: 12:16 Case end Time: 13:07 Fentanyl 25 mcg Versed 2 mg Fluoro Time: 11.2 minutes Dose: DAP 065895 cGycm2 2049 mGy Contrast Type and Amount: Visipaque 285 ml Coronary Angiography The patient's coronary anatomy is right dominant. Diagnostic Cath Left Main 0% narrowing LAD 75% irregular mid vessel narrowing with 75% ostial first diagonal stenosis after deployment of the LAD stent Circumflex 30% mid vessel narrowing Right Coronary Large dominant vessel with 30% proximal narrowing Left Ventriculography Left Ventriculography was not performed. Hemodynamics The aortic pressure is 112/36 mmHg with a mean of 72 mmHg. The left ventricular pressure is 97/-2 mmHg with a mean of mmHg. The left ventricular end diastolic pressure is 4 mmHg. There was no gradient across the aortic valve upon pullback. PCI Technique Lesion Anticoagulation was achieved with Angiomax. Patient was preloaded with Angiomax IV 13 ml. Percutaneous coronary intervention was performed on the mid left anterior descending artery segment. The lesion stenosis prior to intervention was 75% with SUSIE 3 flow. A 6F XB LAD 3.5 Guide Catheter was used to engage the left ostium. A ProwaterFlex 180CM Interventional Guidewire was used to cross the lesion. [place] [address] CARDIAC CATH REPORT Name: AMINATA LOMBARDO Room: [address]#: [id number] Admission: 09/13/19 Attend Phys: Bunny Carrion MD, Discharge: 09/14/19 Date of : 39 Report #: [id number] A Balloon catheter Trek RX 2.5 X 12 was inserted and inflated up to 15.00atm for 16seconds. A NC Trek RX 2.75 x 12 balloon catheter was inserted and inflated up to 15 miesha for 11 seconds and 17 miesha for 13 seconds. STENT DEPLOYMENT A drug-eluting stent Avery RX Stent 2.5X18mm was inserted and inflated up to 14.00atm for 7seconds. Additional Inflation: 16.00atm for 8seconds. Additional Inflation: 17.00atm for 6seconds. Final angiography reveals 0 % stenosis with SUSIE 3 flow. PCI Technique Lesion 2 Percutaneous Coronary Intervention was performed on the first diagnonal branch segment. Patient was preloaded with Angiomax IV 13 ml. The lesion stenosis prior to intervention was 75% with SUSIE 3 flow. A 6F XB LAD 3.5 Guide Catheter was used to engage the left ostium. A BMW 190cm Interventional Guidewire was used to cross the lesion. Balloon Dilation A Balloon catheter Trek RX 2.5 X 8 was inserted and inflated up to 14.00atm for 10seconds. Additional Inflation: 14.00atm for 8seconds. Final angiography reveals 0 % stenosis with SUSIE 3 flow. Conclusion 1. Significant coronary artery disease characterized by the following: A 75% irregular mid LAD stenosis with 75% ostial first diagonal narrowing after deployment of the mid LAD stent B 30% narrowing in the midportion of the nondominant circumflex C 30% narrowing of the proximal portion of the large dominant right coronary 2. Normal left-sided hemodynamics study 3. Successful PCI with deployment of a drug-eluting stent at the site of 75% mid LAD stenosis with 0% residual narrowing and SUSIE-3 flow [place] [address] CARDIAC CATH REPORT Name: AMINATA LOMBARDO Room: [address] Augustina Sheth#: [id number] Admission: 09/13/19 Attend Phys: Bunny Carrion MD, Discharge: 09/14/19 Date of : 39 Report #: [id number] 4. Successful PTCA at the site of 75% ostial first diagonal narrowing with 0% residual narrowing and SUSIE-3 flow to the distal vessel Recommendations Cardiac Risk Reduction Program Aggressive Medical Therapy Medications Administered Clopidogrel Diagnostic Cath Approved by: Bunny Carrion MD Date/Time: 09/14/2019 13:14:03 <ELECTRONICALLY SIGNED> By: Bunny Carrion MD, [facility] 09/14/19 1316 15 1316Bunny Carrion MD, FACC /INF
--- NOTE | 2019-09-14 15:28 | EKG ---
[place] [address] ELECTROCARDIOGRAM REPORT Name: GRUPOAMINATA Welch Room: [address]#: [id number] Admission: 09/13/19 Attend Phys: Cheryl Baird Discharge: 09/14/19 Date of : 38 Date of Service: 09/14/19 0421 Report #: [id number] THIS REPORT FOR: //name// [facility] Test Date: 2019-09-14 Test Time: 04:21:01 Pat Name: AMINATA LOMBARDO Department: Room: [facility] Gender: M Post Form Remover: EVARISTO : 1940 Requested By: Bunny Carrion Order Number: [id number] Marianela MD: Bunny Carrion Measurements Intervals [place] Rate: 54 P: 35 [place]: 236 QRS: -7 QRSD: 113 T: 9 QT: 432 QTc: 410 Interpretive Statements Sinus rhythm Prolonged [place] interval Borderline intraventricular conduction delay Compared to ECG 09/13/2019 13:53:40 Ectopic atrial rhythm no longer present Electronically Signed On 09-14-2019 15:26:16 CDT by Bunny Carrion [email or web address] <ELECTRONICALLY SIGNED> By: Bunny Carrion MD, [facility] 09/14/19 1526 042 0421 Bunny Carrion MD, [facility] /EPI
--- NOTE | 2019-09-15 17:14 | D ---
[address] [address] DISCHARGE SUMMARY Name: AMINATA LOMBARDO Room: [address] M.R.#: [id number] Admission: 09/13/19 Attend Phys: Bunny Carrion MD, Discharge: 09/14/19 Date of : 39 Report #: [id number] THIS REPORT FOR: //name// cc: Elijah Canales MD, Shaun B. MD ~ THIS REPORT FOR: //name// CC: Bunny Canales MD DATE OF SERVICE: 09/14/2019 FINAL DISCHARGE DIAGNOSES: 1. Unstable angina. 2. Coronary artery disease. 3. Status post percutaneous coronary intervention with stenting of the mid left anterior descending and angioplasty of the ostium of the first diagonal. 4. Hypertension. 5. Hyperlipidemia. 6. Carotid stenosis with the right being chronically occluded and modest left carotid disease. PROCEDURES: 09/13/2019 -- left heart catheterization, selective coronary arteriography and percutaneous coronary intervention with stenting of the mid LAD and angioplasty of the ostium of the first diagonal. 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 Recently, he has noted recurrent chest discomfort suggestive of angina with moderate activity. In this context, I performed recatheterization, which defined widely patent stents, but he did demonstrate a 75% LAD stenosis after a prominent first diagonal with 75% ostial first diagonal narrowing after deployment of the mid LAD stent. I had deployed 1 stent in the mid LAD, post-dilated it to 3 mm with 0% residual narrowing. This impinged on the first diagonal, which I dilated with a 2.5 x 8 mm Trek inflated to 14 atmospheres with 0% residual narrowing of the diagonal. The patient did well post-procedurally and ambulated in the hallways without difficulty with good hemostasis at the right femoral site of catheterization. Laboratory revealed sodium 142; potassium 4.1; BUN 21; creatinine 1.4, down from 1.5 preprocedurally; and glucose 135. Hemoglobin 13.3, white blood cell count 13.2, and platelets 124,000. Cholesterol 137, HDL 58, and LDL 67. DISCHARGE MEDICATIONS: The patient was discharged to home on the following medications: Aspirin 162 mg daily, calcium carbonate, vitamin B3 one tablet daily, cholecalciferol, vitamin D3 2000 units daily, Plavix 75 mg daily, [place] [address] DISCHARGE SUMMARY Name: AMINATA LOMBARDO Room: [address] Augustina Sheth#: [id number] Admission: 09/13/19 Attend Phys: Bunny Carrion MD, Discharge: 09/14/19 Date of : 39 Report #: [id number] gluconate 100 mg daily, fish oil 1000 mg daily, Nexium 40 mg daily, metoprolol 25 mg b.i.d., DHEA prasterone 50 mg daily, rosuvastatin or Crestor 5 mg daily, tamsulosin 0.4 mg at bedtime, zinc 50 mg daily, calcium 600 mg daily, and vitamin B6 at 250 mg daily. The patient is scheduled to return to see me in the office in 3-4 weeks and his continuing care will be with Dr. Elijah Canales in [place], [place]. Therefore, the patient is discharged to home in stable condition on the aforementioned medications with followup with myself in approximately 4 weeks. <ELECTRONICALLY SIGNED> By: Bunny Carrion MD, FACC 09/15/19 1714 0958 1019Jonash Carrion MD, FACC /nt
== END 2019-09-14 11:27 | disposition home or self-care (01) ==
LOC: M.CL 10:26 → M.2W 13:34 → M.TBA-CV 13:34 → M.2W 13:59
PROVIDERS: ADMIT Internal Medicine
DX: I25.110 Atherosclerotic heart disease of native coronary artery with unstable angina pectoris (principal); I10 Essential (primary) hypertension; E78.5 Hyperlipidemia, unspecified; I65.29 Occlusion and stenosis of unspecified carotid artery

== ENCOUNTER → 2020-04-13 | Outpatient (CLI) | payer OTHER ==
--- NOTE | 2020-04-13 15:21 | CARDNUC ---
[place] [address] CARDIAC NUCLEAR IMAGING REPORT Name: GRUPOAMINATA Rebekah Room: [facility]#: [id number] Admission: 04/13/20 Attend Phys: Cheryl Baird Discharge: Date of : 38 Date of Service: 04/13/20 1520 Report #: [id number] THIS REPORT FOR: cc: Elijah Canales MD, Shaun B. MD Liston, Michael J. MD [facility] ~ APPROVED REPORT Imaging Protocol: Stress Tc-99m/Rest Tc-99m 1 day Study performed: 04/13/2020 09:28:00 Indication: Chest pain Patient Location: In-Patient Stress Tech: Radha Guzman Stress Nurse: Zahira Brantley RN Ht: 5 ft 9 in Wt: 196 lbs BSA: 2.05 m2 BMI: 28.94 Medical History Medical History: CAD s/p [place], Carotid artery disease, HTN, Hyperlipidemia Medications: asa-81, plavix, metoprolol, rosuvastatin Allergies: iodine Cardiac Risk Factors: Age, FHX of CAD, HTN, Hyperlipidemia, Tobacco History (Former) Previous Cardiac Procedures: PCI, Myocardial infarction Exercise History: Indeterminate Meds Held (24 hrs): metoprolol tartrate Resting Data Rest SPECT myocardial perfusion imaging was performed in supine position 30 minutes following the intravenous injection of 9.7 mCi of Tc-99m Sestamibi. Time of rest injection: 09:40 The images were gated to evaluate regional wall motion and calculate left ventricular ejection fraction. Administration Route: IV Administration Site: Right Wrist Pharmacologic Stress Pharmacologic stress test was performed by injecting Regadenoson 0.4 mg IV push over 10-15 seconds immediately followed by the intravenous injection of 32.1 mCi of Tc-99m [place] [address] CARDIAC NUCLEAR IMAGING REPORT Name: AMINATA LOMBARDO Room: [facility]#: [id number] Admission: 04/13/20 Attend Phys: Cheryl Baird Discharge: Date of : 38 Date of Service: 04/13/20 1520 Report #: [id number] Time of stress injection: 11:35 Administration Route: IV Administration Site: Right Wrist Heart Rate at time of stress injection: 107 bpm. Gated Stress SPECT was performed 40 minutes after stress injection. The images were gated to evaluate regional wall motion and calculate left ventricular ejection fraction. Prone imaging was performed. Stress Test Details Stress Test: Pharmacologic stress testing performed using 0.4 mg of regadenoson per 5 mL given IV over 10 seconds. HR Max Heart Rate (APMHR): 139 bpm Resting HR: 74 bpm Target HR (85% APMHR): 118 bpm Max HR Achieved: 107 bpm % of APMHR: 76 Recovery HR: 96 bpm BP Resting BP: 123/81 mmHg Max BP: 127/66 mmHg Recovery BP: 119/69 mmHg ECG Resting ECG: Sinus Rhythm Stress ECG: Sinus Tachycardia ST Change: None Arrhythmia: None Recovery ECG: Sinus Rhythm Recovery ST Change: None Recovery Arrhythmia: None Clinical Reason for Termination: Completed protocol The patient tolerated walking Lexiscan protocol without significant cardiac symptoms. Nurse Comments pt has bilatera; leg problems Stress ECG Conclusion Baseline twelve-lead EKG shows sinus rhythm without significant ST segment or T wave abnormality. EKGs obtained during and post walking Lexiscan protocol show sinus rhythm and sinus tachycardia with no significant ST segment or T wave changes when [place] [address] CARDIAC NUCLEAR IMAGING REPORT Name: AMINATA LOMBARDO Room: [facility]#: [id number] Admission: 04/13/20 Attend Phys: Cheryl Baird Discharge: Date of : 38 Date of Service: 04/13/20 1520 Report #: [id number] There were no stress-induced arrhythmias. Study Quality Study: Good Artifact: Mild Diaphragmatic artifact Study Data At rest, the left ventricular ejection fraction was 62%.. Post stress, the left ventricular ejection was 59%.. TID = 0.99. Perfusion Perfusion images obtained in the supine position at rest and post walking Lexiscan stress show mild photopenia of the anterior wall that resolves completely with post-rest prone imaging suggesting diaphragmatic attenuation artifact. No other significant defects were noted. Wall Motion Normal left ventricular wall motion. Nuclear Conclusion ECG Findings: negative for ischemia Clinical Findings: negative for ischemia Nuclear Findings: negative for ischemia Exercise Capacity: not assessed Left Ventricular Function: normal Risk Study: low Perfusion study showed no defect to suggest infarct or ischemia. Left ventricular function is normal on gated studies. This is a low risk study. <Conclusion> Baseline twelve-lead EKG shows sinus rhythm without significant ST segment or T wave abnormality. EKGs obtained during and post walking Lexiscan protocol show sinus rhythm and sinus tachycardia with no significant ST segment or T wave changes when compared to baseline. There were no stress-induced arrhythmias. <ELECTRONICALLY SIGNED> By: Jose Juan Rolle MD, FACC 04/13/20 1520 1520 1520 Jose Juan Rolle MD, FACC /INF
== END ==
LOC: M.NUC 02-09 15:19
PROVIDERS: ATTEND Internal Medicine
DX: I25.10 Atherosclerotic heart disease of native coronary artery without angina pectoris (principal); I25.2 Old myocardial infarction; Z98.61 Coronary angioplasty status

== ENCOUNTER → 2020-07-26 | Outpatient (CLI) | payer OTHER ==
[~2020-07-26] VITALS: Ht 175.3 cm; Wt 86.6 kg
[~2020-07-26] MED LIST changes: +ADULT LOW DOSE81 MG PO; +CALCIUM CITRAT1 EA14 PO; +COENZYME Q10100 MG PO; +VITAMIN B-6250 MG PO
[2020-07-26 10:05] LABS: HEMATOCRIT 40.2 % (42.0-52.0); HEMOGLOBIN 13.5 gm/dL (14.0-18.0); MCH 30.9 pg (26.0-34.0); MCHC 33.7 g/dL (28.0-37.0); MCV 91.7 fL (80.0-100.0); MPV 8.5 fl. (7.2-11.1); RBC 4.38 mil/uL (4.50-6.00); RDW-CV 14.4 % (10.5-14.5); WBC 14.9 thou/uL (4.0-11.0)
[2020-07-26 10:11] VITALS: BP 127/71
[2020-07-26 10:13] LABS: ANION GAP 11 mmol/L (7-16); BUN 19 mg/dL (7-18); CALCIUM 8.9 mg/dL (8.5-10.1); CHLORIDE 106 mmol/L (98-107); CO2 25 mmol/L (21-32); CREATININE 1.2 mg/dL (0.6-1.3); GLUCOSE 127 mg/dL (70-99); POTASSIUM 4.4 mmol/L (3.5-5.1); SODIUM 142 mmol/L (136-145)
[2020-07-26 10:17] LABS: ALBUMIN 3.1 g/dL (3.4-5.0); ALKALINE PHOSPHATASE 100 U/L (46-116); CHOLESTEROL 113 mg/dL (<200); HDL CHOLESTEROL 40 mg/dL (>40); LDL CHOLESTEROL 60 mg/dL (<100); SGOT 22 U/L (15-37); SGPT 56 U/L (30-65); TC:HDL 2.8 Ratio (Not establshd); TOTAL BILIRUBIN 0.5 mg/dL (<0.1-1.0); TRIGLYCERIDE 66 mg/dL (<150); VLDL 13 mg/dL (<40)
--- NOTE | 2020-07-26 10:17 | EKG ---
[place] [address] ELECTROCARDIOGRAM REPORT Name: AMINATA LOMBARDO Room: [facility]#: [id number] Admission: 07/26/20 Attend Phys: Cheryl Baird Discharge: Date of : 38 Date of Service: 07/26/20 0943 Report #: [id number] THIS REPORT FOR: //name// [facility] Test Date: 2020-07-26 Test Time: 09:43:34 Pat Name: AMINATA LOMBARDO Department: Room: Gender: Supervisor Contact Lens: : 1940 Requested By: Bunny Carrion Order Number: [id number] Reading MD: Bunny Carrion Measurements Intervals [place] Rate: 68 P: 37 IA: 226 QRS: -18 QRSD: 110 T: 3 QT: 401 QTc: 427 Interpretive Statements Sinus rhythm Ventricular premature complex Prolonged IA interval Abnormal R-wave progression, early transition Left ventricular hypertrophy Compared to ECG 09/14/2019 04:21:01 Ventricular premature complex(es) now present Left ventricular hypertrophy now present Electronically Signed On 07-26-2020 10:17:40 CDT by Bunny Carrion [email or web address] <ELECTRONICALLY SIGNED> By: Bunny Carrion MD, [facility] 07/26/20 1017 0943 0943 Bunny Carrion MD, FAC /EPI
[2020-07-26 10:18] LABS: SERUM ASSESSMENT Clear
[2020-07-26 10:36] LABS: APTT 23.9 Seconds (25.0-31.3); PROTIME 10.7 Seconds (9.20-11.50)
[2020-07-26 13:34] VITALS: BP 150/70
[2020-07-26 13:42] VITALS: BP 141/59
--- NOTE | 2020-07-26 14:37 | CARD ---
[address] [address] CARDIAC CATH REPORT Name: AMINATA LOMBARDO Room: [facility]#: [id number] Admission: 07/26/20 Attend Phys: Bunny Carrion MD, Discharge: Date of : 38 Report #: [id number] THIS REPORT FOR: cc: Elijah Canales MD, Shaun B. MD ~ Bunny Carrion MD [facility] APPROVED REPORT Study performed: 07/26/2020 12:20:06 Patient Details Patient Status: Out-Patient Room #: The patient is a 80 year-old male Event Personnel Bunny Carrion Machine Filler Shredder, Josey Smith RN Sex TherapistGema Brad RCIS Scrub, [place], Becki RTTrey Monitor Procedures Performed Art Access - R femoral artery , Left Heart Cath w/or w/o Coronaries LHC , Hemostasis w/ Mynx Indication Chest pain Risk Factors Peripheral Vascular Disease, Hypercholesterolemia, Hypertension Previous Procedures/Diagnoses Previous PCI Admission/Lab Medications/Medications given during procedure Solumedrol IV 125 mg, Benadryl IV 50 mg Procedure Narrative The patient was brought electively to the Cardiac Catheterization Laboratory and was prepped and draped in a sterile manner. The right femoral was infiltrated with 2% Lidocaine subcutaneous anesthesia. IV conscious sedation was used throughout procedure with appropriate monitoring and was performed in the presence of a registered nurse who was an independent trained observer other than the physician performing the procedure. A [place] 6 [place] [address] CARDIAC CATH REPORT Name: AMINATA LOMBARDO Room: [facility]#: [id number] Admission: 07/26/20 Attend Phys: Bunny Carrion MD, Discharge: Date of : 38 Report #: [id number] the right femoral artery. Coronary angiography was performed using coronary diagnostic catheters. The right coronary system was accessed and visualized with a 6F JR4 catheter. The left coronary system was accessed and visualized with a 6F JL4 catheter. The left ventricle was accessed and visualized with a 6F Pigtail catheter. Left ventricular/Aortic Valve gradient assessed via catheter pullback. Left ventriculogram was performed in BORJA projection. Pre-demployment femoral angiogram was performed . Closure device was deployed with a 6 Fr Mynx. The patient tolerated the procedure well and there were no complications associated with the procedure. There was no hematoma. Patient was premedicated with Solumedrol and Benadryl, due to an Iodine allergy. Intraoperative Conscious Sedation Sedation start time: 12:48 Case end Time: 13:17 Fentanyl 25 mcg Versed 1 mg Fluoro Time: 2.6 minutes Dose: DAP 71320 cGycm2 896 mGy Contrast Type and Amount: Omnipaque 130 ml Coronary Angiography The patient's coronary anatomy is right dominant. Diagnostic Cath Left Main 0% narrowing LAD 20% proximal LAD narrowing with widely patent proximal and mid LAD stents; there is a widely patent first diagonal stent Circumflex 20% proximal narrowing with 30% ostial first marginal narrowing Right Coronary Large dominant vessel with 30% proximal and distal narrowings Left Ventriculography The left ventricle is normal in size with normal contractility. The left ventricular ejection fraction is estimated to be 65%. Left ventricular wall motion abnormalities are not present. There is no mitral insufficiency. Hemodynamics The aortic pressure is 119/54 mmHg with a mean of 79 mmHg. The left ventricular pressure is 119/1 mmHg with a mean of mmHg. The left ventricular end diastolic pressure is 8 mmHg. [place] [address] CARDIAC CATH REPORT Name: AMINATA LOMBARDO Rebekah Room: [facility]#: [id number] Admission: 07/26/20 Attend Phys: Bunny Carrion MD, Discharge: Date of : 38 Report #: [id number] across the aortic valve upon pullback. Conclusion 1. Coronary artery disease characterized by the following: A 20% proximal LAD narrowing with widely patent proximal and mid LAD stents and a widely patent first diagonal stent B nondominant circumflex with 20% proximal narrowing and 30% ostial first marginal narrowing C dominant right coronary artery with 30% proximal and distal narrowings 2. Normal left-sided hemodynamic study 3. Normal left ventricular systolic function, estimated ejection fraction being 65%. Recommendations Cardiac Risk Reduction Program Aggressive Medical Therapy Diagnostic Cath Approved by: Bunny Carrion MD Date/Time: 07/26/2020 14:35:31 <ELECTRONICALLY SIGNED> By: Bunny Carrion MD, [facility] 07/26/20 1437 1437 1437Bunny Carrion MD, [facility] /INF
[2020-07-26 14:46] VITALS: BP 133/72
[2020-07-26 16:03] VITALS: BP 138/68
== END | disposition home or self-care (01) ==
LOC: M.CL 08:46
PROVIDERS: ATTEND Internal Medicine
DX: R07.9 Chest pain, unspecified (principal); I25.10 Atherosclerotic heart disease of native coronary artery without angina pectoris; I10 Essential (primary) hypertension; E78.00 Pure hypercholesterolemia, unspecified; I73.9 Peripheral vascular disease, unspecified; Z98.890 Other specified postprocedural states; Z79.899 Other long term (current) drug therapy; Z96.641 Presence of right artificial hip joint; Z20.822 Contact with and (suspected) exposure to COVID-19; Z85.828 Personal history of other malignant neoplasm of skin; Z91.041 Radiographic dye allergy status; Z79.82 Long term (current) use of aspirin